=== PATIENT | male | born 1990 | race Caucasian/White ===

== ENCOUNTER 2017-12-05 13:59 | Inpatient (IN) | payer BC, OTHER ==
[~2017-12-05] VITALS: Ht 175.3 cm; Wt 77.1 kg
--- NOTE | 2017-12-05 14:40 | NUR ---
Pre-Assessment Memorial Designer encounters pt in intake office. Pt is A/O x4 and makes his needs known. Clear thought process with linear thought and clear speech. Flat affect with congruent mood. Pt endorses having last used at 1300 and is currently under the influence. No COWS/CIWA performed. Pt denies any signs or symptoms of withdrawal. VS stable. Denies HI/SI and is approrpiate for the unti.
[2017-12-05] MEDS ORDERED: LORAZEPAM 2 MG/1 ML VIAL IM PRN (15:15)
[2017-12-05] MEDS ORDERED: CLONIDINE HCL 0.1 MG TABLET PO PRN (15:15)
[2017-12-05] MEDS ORDERED: BUPRENORPHINE HCL 2 MG TAB.SUBL SL PRN (15:15)
[2017-12-05] MEDS ORDERED: diphenhydrAMINE 50 MG CAPSULE PO PRN (15:15)
[2017-12-05] MEDS ORDERED: ACETAMINOPHEN 325 MG TABLET PO PRN (15:15)
[2017-12-05] MEDS ORDERED: MIRALAX 17 GM POWD.PACK PO PRN (15:15)
[2017-12-05] MEDS ORDERED: LOPERAMIDE HCL 2 MG CAPSULE PO PRN ×2 (15:15)
[2017-12-05] MEDS ORDERED: DICYCLOMINE HCL 20 MG TABLET PO PRN (15:15)
[2017-12-05] MEDS ORDERED: ONDANSETRON 4 MG/2 ML VIAL IM PRN (15:15)
[2017-12-05] MEDS ORDERED: ONDANSETRON ODT 4 MG TAB.RAPDIS SL PRN (15:15)
[2017-12-05] MEDS ORDERED: LORAZEPAM 1 MG TABLET PO PRN ×2 (15:15)
[2017-12-05] MEDS ORDERED: IBUPROFEN 600 MG TABLET PO PRN (15:15)
[2017-12-05] MEDS ORDERED: MAG HYDROX/AL HYDROX/SIMETH 30 ML LIQUID UDC PO PRN (15:15)
[2017-12-05] MEDS ORDERED: MAGNESIUM HYDROXIDE 30 ML LIQUID UDC PO PRN (15:15)
--- NOTE | 2017-12-05 15:25 | NUR ---
Pt is admitted to [facility] for the medical management of Benzodiazepine and Heroin withdrawal. Pt is A/O x4 and makes needs known. Flat affect with congruent mood. Clear thought process and clear speech. Denies SI/HI or A/VH and any other associated symptoms.Pt endorses having last used Heroin and 2mg of Xanax at 1300 and is actively under the influence of substances. Pt denies any associated withdrawal symptoms and states, " no, I am feeling well". Pt endorses using 2-3 grams of Heroin and 1-2 mg of Xanax daily, has been using since age 18, at this rate of using for 10 months. Pt was at [facility] in 11/20 and was sober for approximately 5 months before beginning his current run. Pt believes his trigger to be that of the memories of his girlfriend. Pt endorses no medical history and a psychiatric history of anxiety and depression. Pt has a history of withdrawal related seizure about 2 years ago. Pt states no history of SI, but has been on a 5150 for DTS. Pt explains he was placed on a 5150, but was released quickly d/t his behavior being caused by street drugs. Gas Adjuster assessed skin, skin intact. All paperwork signed for. Pt educated on unit rules and guidelines. Will continue to monitor, support and encourage according to plan of care.
[2017-12-05 15:41] LABS: BASOPHILS # (AUTO) 0.1 K/uL (0.0-8.0); BASOPHILS % (AUTO) 1.1 % (0.0-2.0); EOSINOPHILS % (AUTO) 19.5 % (0.0-7.0); HEMATOCRIT 44.3 % (36.7-47.1); HEMOGLOBIN 15.3 g/dL (12.5-16.3); LYMPHOCYTES # (AUTO) 3.3 K/uL (20.0-40.0); LYMPHOCYTES % (AUTO) 32.8 % (20.5-51.5); MEAN CORPUSCULAR HEMOGLOBIN 29.8 uug (23.8-33.4); MEAN CORPUSCULAR HGB CONC 35 g/dL (32.5-36.3); MEAN CORPUSCULAR VOLUME 86.3 fL (73.0-96.2); MONOCYTES # (AUTO) 0.7 K/uL (2.0-10.0); MONOCYTES % (AUTO) 6.5 % (0.0-11.0); NEUTROPHILS % (AUTO) 40.1 % (38.5-71.5); PLATELET COUNT (AUTO) 439 K/uL (152-348); RED BLOOD CELL COUNT(AUTO) 5.14 MIL/uL (4.06-5.63); WHITE BLOOD COUNT (AUTO) 10.1 K/uL (3.6-10.2)
[2017-12-05 15:56] LABS: ALANINE AMINOTRANSFERASE 341 U/L (16-63); ALKALINE PHOSPHATASE 84 U/L (50-136); ASPARTATE AMINOTRANSFERASE 123 U/L (15-37); BILIRUBIN,TOTAL 0.5 mg/dL (0.2-1.0); CARBON DIOXIDE 32 mmol/L (21-32); CHLORIDE 100 mmol/L (98-107); CREATININE 1.1 mg/dL (0.6-1.3); GLUCOSE 94 mg/dL (74-106); POTASSIUM 3.6 mmol/L (3.5-5.1); TOTAL PROTEIN, SERUM 8.9 g/dL (6.4-8.2); UREA NITROGEN, BLOOD 17 mg/dL (7-18)
--- NOTE | 2017-12-05 16:00 | NUR ---
COWS/CIWA Deferred Wilderness Guide deferred d/t pt's intoxification, last used 1300. Pt endorses still being " right" and denies any signs or symptoms of withdrawal. Will continue to monitor, support and encourage according to plan of care.
[2017-12-05 16:02] LABS: ETHANOL < 3 MG/DL (0-0)
[2017-12-05 16:30] VITALS: BP 104/70
[2017-12-05 16:32] LABS: NEUTROPHILS % (MANUAL) 40 % (42-75)
[2017-12-05 16:33] LABS: EOSINOPHILS % (MANUAL) 20 % (0-8); LYMPHOCYTES % (MANUAL) 30 % (20-40); MONOCYTES % (MANUAL) 10 % (2-10)
[2017-12-05] MEDS ORDERED: CLON0.1T PO (16:35)
[2017-12-05] MEDS ORDERED: HYDR50CA PO (16:35)
[2017-12-05] MEDS ORDERED: QUET100T PO (16:35)
[2017-12-05] MEDS ORDERED: CYCL10TA9 PO (16:35)
[2017-12-05 17:57] LABS: *AMPHETAMINE, URINE NEGATIVE (NEGATIVE); *BARBITURATE, URINE NEGATIVE (NEGATIVE); *CANNABINOID, URINE NEGATIVE (NEGATIVE); *COCCAINE, URINE NEGATIVE (NEGATIVE); *OPIATE, URINE POSITIVE (NEGATIVE); *PHENCYCLIDINE SCREEN,URINE NEGATIVE (NEGATIVE)
--- NOTE | 2017-12-05 18:49 | NUR ---
End Of Shift Title Officer provided report on 26 year old male admitted to [facility] for medical management of Heroin and Xanax withdrawals. Pt reports NKA, full code and regular diet. No medical history with a PPH of anxiety and depression. Pt arrived on the unit intoxicated and endorses, feeling right. Title Officer has deferred COWS/CIWA due to intoxification. No PRN medication administered. Pt is calm, cooperative and pleasant. Pt motivated for sobriety, this is my last time, I am done. Bed in low position with wheels locked and side rails up x2.
--- NOTE | 2017-12-05 19:14 | NUR ---
Start of shift note Received report from day shift nurse. Pt is a 26 yo male, A+Ox4, presenting to [facility] for Benzo/Opiate withdrawal. Pt noted to be restless, anxious, and agitated. Pt has HX of Anxiety, depression, and seizure which will be monitored during shift. Pt is on 5 day Ativan and 5 day Subutex tapers to start tomorrow. Respirations even and unlabored. Will continue to monitor.
[2017-12-05 20:39] VITALS: BP 114/74
[2017-12-05] MEDS ORDERED: LORAZEPAM 1 MG TABLET PO SCH (21:00)
[2017-12-06 00:24] VITALS: BP 127/89
[2017-12-06 04:13] VITALS: BP 131/85
[2017-12-06] MEDS: METHOCARBAMOL 750 MG TABLET PO PRN (06:14)
--- NOTE | 2017-12-06 06:16 | NUR ---
PRN Clonidine and Robaxin Pt c/o anxiety and muscle pain 03/15. PRN Clonidine and Robaxin given and tolerated well. Will reassess within 1 HR. Will continue to monitor.
--- NOTE | 2017-12-06 06:55 | NUR ---
PRN Clonidine and Robaxin Reassessment Medication effective. Pt expresses reduction in anxiety and muscle pain to 5/10. No s/s of ASE noted at this time. Respirations even and unlabored. Will continue to monitor.
--- NOTE | 2017-12-06 07:00 | NUR ---
End of shift note Pt was continuously noted to be restless, agitated, and anxious. Pt remained in room for majority of shift except to get food from kitchen, to go smoke on smoking patio, and to interact with other patients in recreational room. Pt was given PRN Clonidine and Robaxin @0616. Pt slept for a total of 8 HRS. Last COWS: 7 and Last CIWA: 7 @0400. Respirations even and unlabored. Will endorse to day shift nurse.
[2017-12-06 07:06] LABS: HEPATITIS B SURFACE AG Negative (Negative)
--- NOTE | 2017-12-06 07:45 | NUR ---
START OF SHIFT Rcvd endorse from ongoing nurse, client is lying in bed in a position, covered from head to toe with several blankets, he appears disheveled, dirt under fingernails noted, client is a/o x 4, he presents with depressed mood, flat affect, avoidant gaze, dilated pupils, flushed face, dry lips, tremors felt, watery eyes, yawning, goosebump, clammy skin, restless, and difficulty concentrating. Client reports anxiety, irritability, sense of panic, cold/chills, sweats, headache, restless legs, nausea, abdominal cramps, no appetite, and fatigue. Encourage client to increase PO fluid to maintain hydration and facilitate detox. Encourage client to attend group therapy to learn skills to maintain sober. PRN's administered and noted per protocol. Last CIWA 7 @ 0400. 5 day Ativan /5 day Subutex taper to start this am. PRN Clonidine 0.1mg PO, Robaxin 750mg PO for anxiety and muscle pain 03/15 respectively, see notes per effectivenes. Client slept 8 hrs. Seizure precautions rendered. Call light within reach.
[2017-12-06 08:55] VITALS: BP 101/63
[2017-12-06] MEDS: BUPRENORPHINE HCL 2 MG TAB.SUBL SL SCH ×6 (09:00→20:46)
[2017-12-06] MEDS ORDERED: TUBERCULIN,PURIF.PROT.DERIV. 5 TU/0.1 ML TEST ID ONE (09:00)
[2017-12-06] MEDS: LORAZEPAM 1 MG TABLET PO SCH ×3 (09:36→20:46)
--- NOTE | 2017-12-06 10:00 | NUR ---
Notificartion Dr. Montgomery made aware of Hep C positive
[2017-12-06 12:29] VITALS: BP 109/63
--- NOTE | 2017-12-06 12:40 | NUR ---
Client declined Subutex 4mg SL and PRN Ativan 2mg for COWS 21/CIWA 17, mb anxiety, agitation, tremors, flushed face, chills/cold, sneezing, yawning, teary eyes, headache, goosebump, no appetite, and nausea. Educated client on risks for withdrawal-induced seizure or delirium, he stated, "I am not ready yet, I know if I take the Subutex too early, I'll be sick as a dog, so I'm just going to wait, for the Ativan I 'll wait too." Additional education needed. Call light within reach. MD and CN notified.
--- NOTE | 2017-12-06 14:40 | NUR ---
PRN Subutex 4mg SL administered for COWS 22, mb anxiety, agitation, tremors, flushed face, chills/cold, sneezing, yawning, teary eyes, headache, goosebump, no appetite, and nausea. Encourage PO fluid intake as tolerated to maintain hydration and facilitate detox. Call light within reach.
--- NOTE | 2017-12-06 15:40 | NUR ---
Reassess PRN Subutex 4mg SL, COWS 15, client continues to present with anxiety, agitation, tremors, flushed face, chills/cold, and goosebump. Call light within reach. Addendum: 12/06/17 at 1914 by VIKTOR GRANT RN ENTRY TIME 1510
[2017-12-06 16:55] VITALS: BP 107/61
--- NOTE | 2017-12-06 19:22 | NUR ---
END OF SHIFT Endorse client to incoming nurse, client is a/o x 4, he continues to presents with depressed mood, flat affect, flushed face, tremors, goosebump, restless, difficulty concentrating, anxiety, irritability, sense of panic, cold/chills, sweats, headache, restless legs, nausea, no appetite, and fatigue. PRN Subutex 4mg SL for COWS 22. Last CIWA 13/COWS 15 @ 1600. Client was not compliant with group therapy due to above withdrawal symptoms. Adequate PO fluid intake 1355mL, void x 2. Client consumes 25% of meals. Call light within reach.
--- NOTE | 2017-12-06 19:23 | NUR ---
Start of shift note Received report from day shift nurse. Pt is a 26 yo male, A+Ox4, presenting to [facility] for Benzo/Opiate withdrawal. Pt noted with anxiety, agitation, restlessness, sweats, chills, and body aches. Pt has HX of Anxiety, Depression, and Seizure which will be monitored during shift. Pt is on 5 day Ativan and 5 day Subutex tapers, tolerated well. Respirations even and unlabored. Will continue to monitor.
[2017-12-06 20:12] VITALS: BP 103/73
[2017-12-06] MEDS: GABAPENTIN 300 MG CAPSULE PO SCH (20:58)
[2017-12-07] MEDS: QUETIAPINE FUMARATE 100 MG TABLET PO PRN (00:09)
--- NOTE | 2017-12-07 00:11 | NUR ---
PRN Motrin and Seroquel Pt c/o headache and inability to sleep and requested for PRN Motrin and Seroquel. Will reassess within 1 HR. Will continue to monitor.
[2017-12-07 00:37] VITALS: BP 110/75
--- NOTE | 2017-12-07 01:10 | NUR ---
PRN Motrin and Seroquel Reassessment Medications effective. Pt expresses reduction in headache and is resting well in bed. No s/s of ASE noted at this time. Respirations even and unlabored. Will continue to monitor.
[2017-12-07 04:27] VITALS: BP 118/79
--- NOTE | 2017-12-07 06:54 | NUR ---
End of shift note Pt was continuously noted with anxiety, agitation, restlessness, sweats, chills, and general body aches. Pt remained in room for the majority of shift except to get food from kitchen and to go smoke on smoking patio. Pt is on 5 day Ativan and 5 day Subutex tapers, tolerated well. Pt was given PRN Motrin and Seroquel @0011. Pt slept for a total of 9 HRS. Last COWS: 10 and Last CIWA: 9 @0400. Respirations even and unlabored. Will endorse to day shift nurse.
--- NOTE | 2017-12-07 07:30 | NUR ---
START OF SHIFT Rcvd endorse from ongoing nurse, client is in bed, client is a/o x 4, he appears disheveled, unshaven, dirt under fingernails. he presents with anxious mood, flat affect, flushed face, dark circles under eyes, dry lips, tremors, clammy skin, and goosebump. Client reports feeling anxiety, headache, decreased appetite, abdominal cramps, sense of panic and fatigue. Encourage client to increase PO fluid to maintain hydration and facilitate detox. Encourage client to attend group therapy to learn skills to maintain sober. Last CIWA 10 @ 1999. 5 day Ativan /5 Subutex 5 taper (2nd day). Client slept 9 hrs. Seizure precautions rendered. Call light within reach.
[2017-12-07 08:15] VITALS: BP 99/58
[2017-12-07] MEDS: GABAPENTIN 300 MG CAPSULE PO SCH (09:00)
[2017-12-07] MEDS ORDERED: HYDROXYZINE PAMOATE 25 MG CAPSULE PO PRN (09:00)
[2017-12-07] MEDS: BUPRENORPHINE HCL 2 MG TAB.SUBL SL SCH ×3 (09:35→21:06)
[2017-12-07] MEDS: LORAZEPAM 1 MG TABLET PO SCH ×2 (09:35→12:39)
[2017-12-07] MEDS ORDERED: KETOROLAC TROMETHAMINE 30 MG INJ IM PRN (12:00)
[2017-12-07 12:13] VITALS: BP 107/59
[2017-12-07] MEDS: DICYCLOMINE HCL 20 MG TABLET PO SCH ×3 (14:27→21:00)
[2017-12-07 16:25] VITALS: BP 95/51
[2017-12-07] MEDS ORDERED: LORAZEPAM 1 MG TABLET PO SCH ×2 (17:00→21:00)
--- NOTE | 2017-12-07 19:30 | NUR ---
END OF SHIFT Endorse client to incoming nurse, client is in room, he is a/o x 4, he continues to present with anxious mood, flat affect. Last COWS 15, CIWA 13 @ 1600. Call light within reach.
[2017-12-07 20:00] VITALS: BP 124/55
--- NOTE | 2017-12-07 20:00 | NUR ---
Start of Shift Patient lying on bed, AAOx4 and noted to be anxious, easily agitated and having facial grimaces. Patient stated that he has generalized body pain=5/10. When offered PRN medication, patient refused med saying, "I will suck it up. I would need only Ativan and Subutex tonight." Pt appears disheveled and unkempt. Patient noted to be melancholic and depressed. Provided education, teachings and instructions. Needs reinforcement. Fall, universal, safety and seizure precautions in place. Call light within reach. Latest COWS-12, CIWA-11. Will continue to monitor.
[2017-12-07] MEDS: CLONIDINE HCL 0.1 MG TABLET PO SCH (21:00)
[2017-12-07] MEDS: BACLOFEN 10 MG TABLET PO SCH (21:00)
--- NOTE | 2017-12-07 21:01 | NUR ---
RN note medications refusal Patient refused Baclofen, Bentyl and Clonidine. Patient was explained the benefits and complying to medication regimen and risks of not taking them. Patient verbalized understanding but still refused the medications. MD aware. BP-121/58, Pulse-81.
[2017-12-08] VITALS: BP 115/68
[2017-12-08 04:00] VITALS: BP 112/71
--- NOTE | 2017-12-08 07:06 | NUR ---
End of Shift Patient asleep on bed, but arousable, AAOx3, with increasing anxiety noted. Patient also complained of generalized muscle pain but patient refused PRN pain medication when offered. Patient verbalized: "I can do this. I can still suck it up. I may need the medication later." Patient continues to be isolative, disheveled, depressed and melancholic. Fall, universal, safety and seizure precautions in place. Call light within reach. Latest COWS=10, CIWA=8, slept for 8 hours. Endorsed to AM shift nurse for continuity of care.
[2017-12-08 08:00] VITALS: BP 106/60
--- NOTE | 2017-12-08 08:05 | NUR ---
START OF SHIFT: RECEIVED PT A/O X 4. PT PRESENTS WITH GUARDED AFFECT AND ANXIOUS MOOD. HE IS FIDGETY AND DOESN'T SIT STILL. HE REPORTS ANXIETY,MUSCLE ACHES,CHILLS,SWEATS AND RESTLESS LEGS. COWS 9 CIWA 8. SUBUTEX/ATIVAN TAPER IN PROGRESS. HE STATES HE IS SLEEPING RESTLESS. HE REPORTS POOR APPETITE. ENCOURAGED GROUP ATTENDANCE TO IMPROVE COPING SKILLS AND PREVENT RELAPSE.WILL CONTINUE TO MONITOR AND MANAGE S/S OF W/D.
[2017-12-08] MEDS: BACLOFEN 10 MG TABLET PO SCH ×3 (08:26→21:09)
[2017-12-08] MEDS: DICYCLOMINE HCL 20 MG TABLET PO SCH ×3 (08:26→21:09)
[2017-12-08] MEDS: CLONIDINE HCL 0.1 MG TABLET PO SCH ×3 (08:27→21:00)
[2017-12-08] MEDS ORDERED: BUPRENORPHINE HCL 2 MG TAB.SUBL SL SCH (09:00)
[2017-12-08] MEDS ORDERED: LORAZEPAM 1 MG TABLET PO SCH ×3 (09:00→21:00)
[2017-12-08] MEDS ORDERED: HYDROXYZINE PAMOATE 25 MG CAPSULE PO PRN (10:45)
[2017-12-08 12:00] VITALS: BP 108/77
[2017-12-08] MEDS: FAMOTIDINE 20 MG TABLET PO SCH (15:00)
[2017-12-08] MEDS: BUPRENORPHINE HCL 2 MG TAB.SUBL SL SCH ×2 (15:01→21:08)
[2017-12-08 16:00] VITALS: BP 104/67
--- NOTE | 2017-12-08 18:46 | NUR ---
END OF SHIFT: PT CONTINUES ON SUBUTEX /ATIVAN TAPER TO MANAGE S/S OF W/D WHICH INCLUDE ANXIETY,RESTLESSNESS, BODY ACHES ,CHILLS AND SWEATS. LAST COWS 7 CIWA 6. NO PRNS GIVEN ON SHIFT AND HE STATES THE DETOX MEDS ARE EFFECTIVE. HE ATTENDED GROUPS. HE WAS COMPLIANT WITH MEDS. WILL PASS SHIFT REPORT TO ONCOMING NIGHT NURSE.
--- NOTE | 2017-12-08 19:50 | NUR ---
START FO SHIFT NOTE Pt. is a 26 yo male admitted for Heroine and Xanax withdrawal. Pt. is on 5 day Ativan and Subutex taper. Pt. has h/o withdrawal induced seizures. Pt. is a/o to person, place, time, and purpose. Pt. presents with increasing anxiety, depression, flat affect, body aches, and sweats. Pt. received no PRN medications during previous shift. V/S remained stable throughout the day. Last COWS 8 and CIWA 6 @ 1600. Call light within reach. Pt. will continue to be monitored and needs met.
[2017-12-08 20:00] VITALS: BP 103/56
[2017-12-08] MEDS: QUETIAPINE FUMARATE 100 MG TABLET PO PRN (21:09)
[2017-12-08] MEDS: METHOCARBAMOL 750 MG TABLET PO PRN (21:09)
--- NOTE | 2017-12-08 21:09 | NUR ---
PRN PRN Seroquel and Robaxin given to pt. to help with sleep and body aches. Will reassess in 1 hour.
--- NOTE | 2017-12-08 21:23 | NUR ---
RN Note Pt. refused clonidine. Pt. was educated on why he was prescribed medication. Pt. still refused.
--- NOTE | 2017-12-08 22:09 | NUR ---
PRN REASSESSMENT Pt. lying in bed, eyes closed, breathing is unlabored and even.
--- NOTE | 2017-12-09 00:13 | NUR ---
RN NOTE Pt. deferred COWS and CIWA. Pt. refused V/S. Pt. in bed w/ eyes closed and breathing is even and unlabored.
--- NOTE | 2017-12-09 04:05 | NUR ---
RN NOTE Pt. deferred COWS and CIWA. V/S refused by pt. Pt. in bed w/ his eyes closed, breathing is even and unlabored.
--- NOTE | 2017-12-09 07:01 | NUR ---
END OF SHIFT NOTE Endorsed pt. to oncoming nurse. Pt. is a 26 yo male. Pt. is A/O to person, place, time, and purpose. Pt. presents with anxiety, agitation, blunted affect, sweats, restlessness, and body aches. Pt. received PRN Robaxin 750 mg and Seroquel 100 mg @ 2108. Pt. was c/o back aches and not being able to fall asleep. V/S were stable. Pt.s fluid intake was 1210 ml. Pt. voided 2 times and slept for 7 hrs. Last COWS 9 and CIWA 9 @ 1999. Pt.s PPD test was read negative @ 2109. Call light is within reach and bed is in lowered position.
[2017-12-09 08:00] VITALS: BP 109/60
--- NOTE | 2017-12-09 08:00 | NUR ---
START OF SHIFT: RECEIVED PT LAYING IN BED WITH EYES CLOSED. RESPIRATIONS EVEN AND UNLABORED. BED LOCKED AND LOW. CALL WINTERS IN REACH. WILL ASSESS DURING MEDICATION ADMINISTRATION. WILL CONTINUE TO PROVIDE SAFE AND SUPPORTIVE ENVIRONMENT.
[2017-12-09] MEDS ORDERED: LORAZEPAM 1 MG TABLET PO SCH (09:00)
[2017-12-09] MEDS: CLONIDINE HCL 0.1 MG TABLET PO SCH ×3 (09:00→22:08)
[2017-12-09] MEDS: DICYCLOMINE HCL 20 MG TABLET PO SCH ×3 (10:24→22:07)
[2017-12-09] MEDS: LORAZEPAM 1 MG TABLET PO SCH ×3 (10:24→22:08)
[2017-12-09] MEDS: BACLOFEN 10 MG TABLET PO SCH ×3 (10:24→22:08)
[2017-12-09] MEDS: FAMOTIDINE 20 MG TABLET PO SCH (10:25)
[2017-12-09] MEDS: BUPRENORPHINE HCL 2 MG TAB.SUBL SL SCH ×3 (10:25→22:08)
[2017-12-09 12:00] VITALS: BP 122/76
[2017-12-09] MEDS ORDERED: FAMO20TA8 PO (15:10)
[2017-12-09] MEDS ORDERED: HYDR-3895 PO (15:10)
[2017-12-09] MEDS ORDERED: METH-406 PO (15:10)
[2017-12-09] MEDS ORDERED: CLON0.1T14 PO (15:10)
[2017-12-09] MEDS ORDERED: IBUP-1955 PO (15:10)
[2017-12-09] MEDS ORDERED: DICY20TA28 PO (15:10)
[2017-12-09 16:00] VITALS: BP 100/72
--- NOTE | 2017-12-09 18:39 | NUR ---
END OF SHIFT: PT CONTINUES ON SUBUTEX /ATIVAN TAPER TO MANAGE S/S OF W/D WHICH INCLUDE ANXIETY,RESTLESSNESS, BODY ACHES ,CHILLS AND SWEATS. LAST COWS 8 CIWA 5. HE STATES THE DETOX MEDS ARE EFFECTIVE. HE ATTENDED GROUPS. HE WAS COMPLIANT WITH MEDS. WILL PASS SHIFT REPORT TO ONCOMING NIGHT NURSE.
--- NOTE | 2017-12-09 19:43 | NUR ---
START OF SHIFT NOTE. Pt. is 26 y/o male. Pt. is on a 5 day Ativan and Subutex tape (started on 12/06/17). Pt. is A/O to person, place, time, and purpose. Pt. presents with anxiety, depression, flat affect, body aches, sweats, and disheveled appearance. Pt. received no PRN medications on previous shift. Call light within reach. Pt.will continue to be moniotred and needs met.
[2017-12-09 20:00] VITALS: BP 111/72
[2017-12-09] MEDS: QUETIAPINE FUMARATE 100 MG TABLET PO PRN (22:34)
[2017-12-09] MEDS: METHOCARBAMOL 750 MG TABLET PO PRN (22:34)
--- NOTE | 2017-12-09 22:34 | NUR ---
PRN MEDICATION PRN Robaxin 750 mg and Seroquel 100 mg given. Pt. c/o body aches, restlessness, and not able to fall asleep. Will reassess in 1 hour.
--- NOTE | 2017-12-09 23:34 | NUR ---
PRN REASSESSMENT Pt. is in bed w/ his eyes closed. Breathing is even and unlabored.
--- NOTE | 2017-12-10 | NUR ---
RN NOTE Pt. deferred COWS and CIWA and refused V/S. Pt. is in his bed w/ his eyes closed. Breathing is even and unlabored.
--- NOTE | 2017-12-10 04:03 | NUR ---
RN NOTE Pt. deferred COWS and CIWA, and refused V/S. Pt. is in bed w/ his eyes closed, breathing is even and unlabored.
--- NOTE | 2017-12-10 07:00 | NUR ---
END OF SHIFT NOTE Endorsed pt. to oncoming nurse. Pt. is A/O to person, place, time, and purpose. Pt. still presents with anxiety, flat affect, depressed and worried mood, body aches, and unshaven appearance. Pt. attended evening group therapy session and is cooperative with treatment plan. Pt. received PRN Robaxin 750 mg and Seroquel 100 mg @ 2234, pt. c/o of back aches and anxiety/depression causing inability to sleep. Pt.s s/s were relieved by medications. Pt.s fluid intake was 500 ml. Pt. voided 1 time and slept for 5.5 hrs. Last COWS 8 and CIWA 7 @ 1999. Call light within reach and bed in lowered position.
--- NOTE | 2017-12-10 07:30 | NUR ---
START OF SHIFT Pt is a 26 yr old male A&Ox4. Pt was admitted on 12/05/17 for Opiate/benzo withdrawal and is on 4 day Ativan and 5 day Subutex taper as ordered. Medication vernon well. Received report from career resource technician nurse. pt received Robaxin PRN and Seroquel PRN for sleep and muscle aches. medication was effective. Pt slept for 6 hrs. Last COWS score was 8 and CIWA score was 7. Pt is currently in bed sleeping with respirations even and unlabored. Skin is intact, warm and moist to touch. Pt is on fall and seizure precautions. Call light is within reach. Will continue to monitor.
--- NOTE | 2017-12-10 08:00 | NUR ---
COWS AND CIWA DEFERRED Pt remains in bed sleeping with respirations even and unlabored. Unable to assess for COWS and CIWA score. will continue to f/u
[2017-12-10 08:14] VITALS: BP 116/63
[2017-12-10] MEDS ORDERED: BUPRENORPHINE HCL 2 MG TAB.SUBL SL SCH (09:00)
[2017-12-10] MEDS ORDERED: LORAZEPAM 1 MG TABLET PO SCH (09:00)
[2017-12-10] MEDS: DICYCLOMINE HCL 20 MG TABLET PO SCH ×3 (09:22→21:33)
[2017-12-10] MEDS: FAMOTIDINE 20 MG TABLET PO SCH (09:22)
[2017-12-10] MEDS: BACLOFEN 10 MG TABLET PO SCH ×3 (09:22→21:33)
[2017-12-10] MEDS: CLONIDINE HCL 0.1 MG TABLET PO SCH ×3 (09:23→21:32)
--- NOTE | 2017-12-10 09:27 | NUR ---
COWS AND CIWA ASSESSMENT Pt is awake at this time and is observed with anxiety m/b difficulty staying still. Pt is c/o muscle aching, stuffy nose, abdominal cramping and chills. COWS score was 8 and CIWA score is 6 at this time.
[2017-12-10 12:00] VITALS: BP 96/52
--- NOTE | 2017-12-10 14:29 | NUR ---
Client was prompted to attend group counseling sessions at 11:00am and at 3:30pm.
[2017-12-10 16:00] VITALS: BP 93/60
--- NOTE | 2017-12-10 19:00 | NUR ---
END OF SHIFT Pt is a 26 yr old male AA&Ox4. Pt was admitted on 12/05/17 for Opiate/benzo withdrawal and is on 4 day Ativan and 5 day Subutex taper as ordered. Medication vernon well. Pt has been cooperative with medication regimen and plan of care. Pt has been attending group therapy. Pt has c/o anxiety and has been noted with flat affect. Pt also c/o muscle aches, chills and restlessness. Skin is intact, warm and moist to touch. No PRN's were given during the day. Last COWS score was 6 and CIWA score was 6 at 1600. Pt is to be discharged tomorrow on 12/11/17 to [facility]. Pt is on fall and seizure precautions. Call light is within reach.
--- NOTE | 2017-12-10 19:49 | NUR ---
START OF SHIFT NOTE Received report from outgoing nurse. Pt. is in his room and is A/O to person, place, time, and purpose. Pt. presents with anxiety, flat affect, sweats, body aches, and fine tremors. Pt. denies S/I and H/I. Pt. has been compliant with Tx plan and has attended group therapy sessions. Pt. was given no PRN medications during previous shift. Last COWS 6 and CIWA 6@ 1600. Call light is within reach. Pt. will continue to be monitored and needs met.
[2017-12-10 20:00] VITALS: BP 139/88
[2017-12-10] MEDS: METHOCARBAMOL 750 MG TABLET PO PRN (21:33)
[2017-12-10] MEDS: QUETIAPINE FUMARATE 100 MG TABLET PO PRN (21:33)
--- NOTE | 2017-12-10 21:33 | NUR ---
PRN MEDICATION PRN Robaxin 750 mg and Seroquel 100 mg given @ 2133. Pt. c/o of body aches and restlessness leading to inability to sleep. Will reassess in 1 hour.
--- NOTE | 2017-12-10 22:33 | NUR ---
PRN MEDICATION REASSESSMENT Pt. is in bed w/ is eyes closed and his breathing is even and unlabored.
--- NOTE | 2017-12-11 | NUR ---
RN NOTE Pt. deferred COWS and CIWA, and refused V/S. Pt. is in bed w/ his closed and his breathing is even and unlabored.
--- NOTE | 2017-12-11 04:00 | NUR ---
RN NOTE Pt. deferred COWS and CIWA, and refused V/S. Pt. is in be w/ his eyes closed. Pt.'s breathing is even and unlabored.
--- NOTE | 2017-12-11 07:10 | NUR ---
END OF SHIFT NOTE Endorsed pt. to oncoming nurse. Pt. is in his bed and is A/O to person, place, time, and purpose. Pt. presents with depressed mood, blunted affect, restlessness, sweats, and body aches. Pt. is compliant with treatment plan. Pt. received PRN Robaxin 750 mg and Seroquel 100 mg @ 2133 for body aches and restlessness leading to inability to fall asleep. Pt. was responsive to medications. Pt.s fluid intake was 566 ml. Pt. slept for 6.5 hrs. Last COWS 8 and CIWA 8 @ 1999. Call light within reach and bed in lowered position.
--- NOTE | 2017-12-11 07:11 | NUR ---
Start of Shift Entry Level Management received report on 26 year old male admitted to [facility] on 12/05/17 for medical management of Benzodiazepine and Opiate withdrawals. Pt endorses NKA, full code and regular diet. Pt endorses PMH of Hepatitis C with a history of withdrawal related seizures. PPH of anxiety and depression. Pt has completed an Ativan and Subutex taper in preparation for pts discharge this am. Last CIWA 8 and COWS 8, per NOC report. Pt administered PRN: Robaxin(muscle cramps) and Seroquel(insomnia) per report. Entry Level Management encounters pt in room resting with eyes closed with rise and f all of chest noted. Even and unlabored respirations. Bed in low position with wheels locked and side rails up x2. Will continue to monitor, support and encourage according to plan of care.
[2017-12-11 08:39] VITALS: BP 92/54
[2017-12-11 09:00] VITALS: BP 98/52
[2017-12-11] MEDS: CLONIDINE HCL 0.1 MG TABLET PO SCH (09:00)
[2017-12-11] MEDS: DICYCLOMINE HCL 20 MG TABLET PO SCH (09:06)
[2017-12-11] MEDS: BACLOFEN 10 MG TABLET PO SCH (09:06)
[2017-12-11] MEDS: FAMOTIDINE 20 MG TABLET PO SCH (09:06)
--- NOTE | 2017-12-11 10:20 | NUR ---
Discharge Pt discharged from [facility] in stable condition with VS WNL. Pt calm and cooperative, makes his needs known. A/O x4. Clear thought process, clear speech patterns and linear thoughts. Pt denies HI/SI or A/VH or any associated symptoms. Pt was educated on discharge packet including medication education to include indication, route and timing of prescribed medications. Pt provided with prescription for prescribed medications. Pt educated on exit labs and discharge education including smoking cessation and Hepatitis education. All personal belongings signed for and returned, including home medications. Pt discharges per ambulation to awaiting private car for transport to [facility] Pt left premises in private car.
== END 2017-12-11 10:02 | disposition other institution (70) | DRG 895 ==
LOC: SRC 13:59
PROVIDERS: ADMIT Internal Medicine; ATTEND Internal Medicine
PROC: HZ2ZZZZ Detoxification Services for Substance Abuse Treatment (ICD-10-PCS; principal; 2017-12-05)
PROC: HZ41ZZZ Group Counseling for Substance Abuse Treatment, Behavioral (ICD-10-PCS; 2017-12-08)
DX: F11.23 Opioid dependence with withdrawal (principal); B19.20 Unspecified viral hepatitis C without hepatic coma; F17.210 Nicotine dependence, cigarettes, uncomplicated; F32.9 Major depressive disorder, single episode, unspecified; F41.9 Anxiety disorder, unspecified; Z81.1 Family history of alcohol abuse and dependence; Z83.3 Family history of diabetes mellitus; Z80.9 Family history of malignant neoplasm, unspecified; Z59.0 Homelessness; Z59.1 Inadequate housing; Z86.69 Personal history of other diseases of the nervous system and sense organs; Z20.5 Contact with and (suspected) exposure to viral hepatitis
CPT/HCPCS: 36415; 70030-TC; 80307; 80346; 80361; 83735; 85025; 86580; 86592; 86705; 86803; 87340; 87806; G0480